=== PATIENT | male | born 1985 | race Caucasian/White ===

== ENCOUNTER 2017-01-04 02:05 | Emergency (ER) | payer OTHER ==
[~2017-01-04] VITALS: Ht 157.5 cm; Wt 54.4 kg
[~2017-01-04 02:05] MED LIST: BLEPH-10 15 ML15 ML OP; KEFLEX 500MG.500 MG PO; MEDROL 4MG. DOSE4 MG PO; NOMEDS; SEPTRA DS 800 M1 TAB PO; TAMIFLU75 MG PO
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
[2017-01-04 03:43] VITALS: BP 133/81
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
== END 2017-01-04 03:45 | disposition home or self-care (01) ==
LOC: ER 02:05
DX: S22.029A Unspecified fracture of second thoracic vertebra, initial encounter for closed fracture (principal); S16.1XXA Strain of muscle, fascia and tendon at neck level, initial encounter; V29.9XXS Motorcycle rider (driver) (passenger) injured in unspecified traffic accident, sequela; Y92.9 Unspecified place or not applicable

== ENCOUNTER 2017-01-06 23:16 | Emergency (ER) | payer OTHER ==
[~2017-01-06] VITALS: Ht 157.5 cm; Wt 44.1 kg
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
[2017-01-07 01:08] VITALS: BP 136/97
--- OUTSIDE RECORDS SUMMARY | 2017-01-30 01:58 | External Medical Summary Rpt ---
Author Author , BERTO THOMSON Address Unknown Phone [email or web address] Care Team Providers Care Ladle Liner Helper Name Role Phone BROCK HUIZAR, Unavailable Unavailable BROCK HUIZAR JAMES P, Unavailable Unavailable CHELA ELIZABETH MICHAEL S, Unavailable Unavailable BREE CAR[facility]ON [facility] Unavailable Unavailable INC, [facility] KAVITHA RANDALL, Unavailable Unavailable KAVITHA RANDALL [id number], Unavailable Unavailable [id number] LUCIA BIANCHI, Unavailable Unavailable LUCIA BIANCHI Unavailable Unavailable DIAZ MURDOCK, Yoandy Garcia III, MD Purpose Continuity of Care Document - 05-27-2007 through 2016 Problems Code Diagnosis DOS Provider Status 782.1 782.1 09-18-2012 [facility] NEC 5210 DENTAL 05-27-2009 [facility] 5258 OTHER SPEC 05-27-2009 THE IMPLANT DISORDERS & ORAL TEETH&SUPPO SURGERY RTING CENTER [facility] STRUCTURES 4619 ACUTE 12-15-2008 [place] [facility], EMERGENCY UNSPECIFIED SERVICES [facility] 46768 ACUTE 12-15-2008 [facility] INDUCED 71523 CHRONIC 12-15-2008 [facility]GENC[facility] SERVICES INDUCED [facility]OCIATES 16968 UNSPECIFIED 08-07-2008 [facility] CONJUNCTIVI INC TIS 47924 UNSPECIFIED 08-07-2008 [facility] CONJUNCTIVI SERVICES TIS [facility]OCIATES 1330 SCABIES 07-02-2007 LUCIA BIANCHI 4871 INFLUENZA 05-27-2007 [facility] RESPIRATORY INC MANIFESTATI ONS 7862 COUGH 05-27-2007 [facility] Allergies, Adverse Reactions, Alerts Type Drug Allergy Adverse Reaction to Substance Substance Reaction Severity Penicillin Unknown Unknown Amoxicillin UNKNOWN Unknown Medications Na ND Rx Da Fi Fi Am Da Di Ph RX Ph St me C No te ll ll ou ys ag ar # ys at rm s nt no ma ic us Or Da si cy ia de te s n re d AL 59 02 02 00 1. 1 RI 82 MC Ac SD 76 -0 -1 00 TE 01 LA ti AZ 23 4- 1- 0 17 UR ve OL 72 20 20 AI IN AM 10 10 10 D 1 3 PH DO AR NA MG M LD #3 R TA 93 BL 8 ET Vital Signs 09-18-2012 13:02 Name Value Interpretat Reference Comment ion Range BP 92 mm[Hg] Diastolic BP Systolic 136 mm[Hg] Heart 72 /min Rate/Pulse O2% 98 % Respiratory 18 /min Rate 09-18-2012 12:39 Name Value Interpretat Reference Comment ion Range BP 68 mm[Hg] Diastolic BP Systolic 118 mm[Hg] Heart 84 /min Rate/Pulse O2% 99 % Respiratory 20 /min Rate Procedures Procedure DOS Code Location Performer Comment ALVEOLOPL 21506 [facility], ASTY EACH 0 IMPLANT & KAVITHA R QUADRANT ORAL SPECIFY [facility] DEEP D9220 [facility], SEDATION/ 0 IMPLANT & KAVITHA R GENERAL ORAL ANESTHESI SURGERY A-1ST 30 CENTER MINUTES [facility] RADIOLOGI 32841 [facility] C EXAM 8 [facility] CHEST 2 INC INC VIEWS FRONTAL&L ATERAL IAADI 53763 [facility] INFLUENZA 8 [facility] B VIRUS INC INC IAADI 73573 [facility] INFFLUENZ 8 [facility] A A VIRUS INC INC Encounters Encounter Start End Date Code Location Performer Type Date Emergency ENRIQUE Garcia (ER) 3 11:52 3 13:02 [facility] Yoandy Almanzar OFFICE 32545 [facility], OUTPATIEN 0 0 IMPLANT & KAVITHA R T NEW 20 ORAL MINUTES [facility] EMERGENCY 76212 AGUSTO CARREON 9 9 EMERGENCY [facility] SERVICES T VISIT MODERATE ASSOCIATE SEVERITY S EMERGENCY 75869 [facility] 9 9 [facility] LOW/MODER SEVERITY [facility] - 9 9 [facility] OUTPATIEN INC T HOSPITAL [facility] - 9 9 [facility] OUTPATIEN INC T EMERGENCY 09287 AGUSTO ELIZABETH, [address] [facility] SERVICES T VISIT MODERATE ASSOCIATE SEVERITY S EMERGENCY 86246 F[facility] 9 9 [facility] T VISIT LOW/MODER SEVERITY OFFICE 32712 TASH BIANCHI OUTPATIEN 8 8 LUCIA Mckeon T VISIT 15 MINUTES HOSPITAL [facility] - 8 8 [facility] OUTPATIEN INC T EMERGENCY 12689 [facility] 8 8 [facility] T VISIT MODERATE SEVERITY
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
--- OUTSIDE RECORDS SUMMARY | 2017-01-30 01:59 | External Medical Summary Rpt ---
Author Author BERTO Rocha, BERTO Rocha Organization [employer] Address Unknown Phone Unavailable
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
--- OUTSIDE RECORDS SUMMARY | 2017-01-30 01:59 | External Medical Summary Rpt ---
Author Author , BERTO THOMSON Address Unknown Phone [email or web address] Immunization Name Date Rout CVX Reac Dose Comm Prov Is Faci e tion ent ider Refu lity Give sed n Td 08-3 9 999 Hist H149 No H149 (spenser 0-20 oric lt), 04 al Info adso rmat rbed ion - Sour ce Unsp ecif ied MMR 04-2 3 999 Hist H149 No H149 5-19 oric 97 al Info rmat ion - Sour ce Unsp ecif ied
--- OUTSIDE RECORDS SUMMARY | 2017-01-30 01:59 | External Medical Summary Rpt ---
Author Author , BERTO THOMSON Address Unknown Phone [email or web address] Immunization Name Date Rout CVX Reac Dose [...]
--- OUTSIDE RECORDS SUMMARY | 2017-01-30 01:59 | External Medical Summary Rpt ---
Author Author , BERTO LIAOALICE Address Unknown Phone [email or web address] Care Team Providers Care Office Services Associate Name Role Phone BHUPENDRA, BROCK, Unavailable Unavailable BROCK HUIZAR JAMES P, Unavailable [...] [facility] 5258 OTHER SPEC 05-27-2009 [facility] DISORDERS & ORAL TEETH&SUPPO SURGERY RTING [facility] STRUCTURES 4619 ACUTE 12-15-2008 [facility] UNSPECIFIED SERVICES [facility]OC[facility]ATES 89171 ACUTE 12-15-2008 [facility] INDUCED 39173 CHRONIC 12-15-2008 [facility] PLA[facility] SERVICES INDUCED [facility]OC[facility]ATES 94055 UNSPECIFIED 08-07-2008 [facility] CONJUNCTIVI INC TIS 05678 UNSPECIFIED 08-07-2008 [facility] CONJUNCTIVI SERVICES TIS [facility]OCIATES 1330 SCABIES 07-02-2007 [facility] BIANCHI 4871 INFLUENZA 05-27-2007 [facility] WITH OTHER [facility] RESPIRATORY INC MANIFESTATI ONS 7862 COUGH 05-27-2007 [facility] Medications Na ND Rx Da Fi Fi Am Da Di Ph RX Ph St me C No te ll ll ou ys ag ar # ys at rm s nt no ma ic us Or Da si cy ia de te s n re d AL 59 02 02 00 1. 1 RI 82 MC Ac IA 76 -0 -1 00 TE 01 LA [...] SURGERY A-1ST [facility] [employer] ALVEOLOPL 83351 [facility], ASTY EACH 0 IMPLANT & KAVITHA R QUADRANT ORAL SPECIFY [facility] RADIOLOGI 69781 [facility] GRECO C EXAM 8 [facility] CHEST 2 INC INC VIEWS FRONTAL&L ATERAL IAADI 08265 [facility] INFLUENZA 8 [facility] B VIRUS INC INC IAADI 86991 [facility] INFFLUENZ 8 [facility] A A VIRUS INC INC Encounters Encounter Start End Date Code Location Performer Type Date OFFICE 69998 [facility], OUTPATIEN 0 0 IMPLANT & KAVITHA R T NEW 20 [facility] EMERGENCY 87474 FANNIE 9 9 [facility] DEPARTMEN INC T VISIT LOW/MODER SEVERITY EMERGENCY 82238 AGUSTO CARREON, 9 9 EMERGENCY [facility] DEPARTMEN SERVICES T VISIT MODERATE ASSOCIATE SEVERITY S HOSPITAL [facility] - 9 9 [facility] OUTPATIEN INC T EMERGENCY 20319 AGUSTO ELIZABETH, 9 9 EMERGENCY [facility] DEPARTMEN SERVICES T VISIT MODERATE ASSOCIATE SEVERITY S EMERGENCY 69593 FANNIE 9 9 [facility] DEPARTMEN INC T VISIT LOW/MODER SEVERITY [facility]OSPITAL [facility] - 9 9 [facility] OUTPATIEN INC T OFFICE 03891 TASH BIANCHI OUTPATIEN 8 8 DON R DON R T VISIT 15 MINUTES EMERGENCY 17538 FANNIE 8 8 [facility] DEPARTMEN INC T VISIT MODERATE SEVERITY HOSPITAL [facility] - 8 8 [facility] OUTPATIEN INC T
== END 2017-01-07 01:15 | disposition home or self-care (01) ==
LOC: ER 23:16
DX: S22.029A Unspecified fracture of second thoracic vertebra, initial encounter for closed fracture (principal); V49.9XXA Car occupant (driver) (passenger) injured in unspecified traffic accident, initial encounter; Y92.9 Unspecified place or not applicable